=== PATIENT | female | born 1950 | race Caucasian/White ===

== ENCOUNTER 2017-03-14 21:35 | Observation (INO) | payer MEDICARE, OTHER ==
[~2017-03-14] VITALS: Ht 157.5 cm; Wt 72.3 kg
[2017-03-14 22:03] LABS: BASOPHILS ABSOLUTE AUTO 0.06 K/mm3 (0.00-0.23); BASOPHILS PERCENT AUTO 1 % (0-2); EOSINOPHILS PERCENT AUTO 0 % (0-6); Hematocrit 42.3 % (33.0-51.0); IMMATURE GRAN ABSOLUTE AUTO 0.03 K/mm3 (0.00-0.10); IMMATURE GRAN PERCENT AUTO 0 % (0-1); LYMPHOCYTES ABSOLUTE AUTO 2.96 K/mm3 (0.84-5.20); LYMPHOCYTES PERCENT AUTO 30 % (21-46); MONOCYTES ABSOLUTE AUTO 0.95 K/mm3 (0.16-1.47); MONOCYTES PERCENT AUTO 10 % (4-13); Mean Corpuscular HGB 28.5 pg (26.0-34.0); Mean Corpuscular HGB Conc 33.1 g/dL (31.5-36.5); Mean Corpuscular Volume 86 fL (80-100); Mean Platelet Volume 9.5 fL (9.1-12.4); NEUTROPHILS ABSOLUTE AUTO 5.85 K/mm3 (1.96-9.15); NEUTROPHILS PERCENT AUTO 59 % (41-73); Platelet Count 346 K/mm3 (150-400); RDW Coefficient Variation 12.9 % (11.7-14.2); RDW Standard Deviation 40.7 fL (35.1-46.3); Red Blood Cell Count 4.91 M/mm3 (3.80-5.20); White Blood Cell Count 9.85 K/mm3 (4.00-11.30)
[2017-03-14 22:08] LABS: Source, Urine Catheter
[2017-03-14 22:11] LABS: Bilirubin, Urine Neg (Neg); Blood, Urine 1+ (Neg); Color, Urine Yellow (P-Yellow); Glucose Qualitative, Urine Neg (Neg); Ketones, Urine Neg (Neg); Leukocyte Esterase, Urine Neg (Neg); Nitrite, Urine Neg (Neg); Protein, Urine Neg (Neg); Specific Gravity, Urine 1.025 (1.003-1.022); Urobilinogen, Urine NORM (Normal)
[2017-03-14 22:15] LABS: Prothrombin Time Results 10.4 Sec (9.7-11.5)
[2017-03-14 22:22] LABS: Alanine Aminotransfer (ALT/SGP 28 U/L (12-78); Albumin, Blood 3.9 g/dL (3.4-5.0); Albumin/Globulin Ratio 1.2 (0.8-1.8); Alk Phos 87 U/L (50-136); Anion Gap 6 mmol/L (6-16); Aspartate Aminotrans (AST/SGOT 22 U/L (12-37); Bilirubin, Total 0.3 mg/dL (0.1-1.0); Blood Urea Nitrogen 11 mg/dL (8-24); Bun/Creatinine Ratio 16.7 (12.0-20.0); CO2, Blood 27 mmol/L (21-32); Calcium, Blood 8.7 mg/dL (8.5-10.1); Chloride, Blood 109 mmol/L (98-108); Creatinine, Blood 0.66 mg/dL (0.40-1.00); Globulin, Blood 3.2 g/dL (2.2-4.0); Glomerular Filtration Rate >60 (60-); Glucose, Blood 109 mg/dL (70-99); Sodium, Blood 142 mmol/L (136-145); Total Protein, Blood 7.1 g/dL (6.4-8.2)
[2017-03-14 22:25] LABS: Appearance, Urine Clear (Clear)
[2017-03-14 22:29] LABS: Bacteria Not Seen /hpf; Red Blood Cells, Urine 0-2 /hpf (0-2); Squamous Epithelial Cells Rare /hpf (Few); U Amphetamine Screen Not Detected; U Barbituate Screen Not Detected; U Benzodiazapine Screen Not Detected; U Buprenorphine Screen Not Detected; U Cannabinoids Screen DETECTED; U Cocaine Screen Not Detected; U Methadone Screen Not Detected; U Methamphetamine Screen Not Detected; U Opiates Screen Not Detected; U Oxycodone Screen Not Detected; U Phencyclidine Screen Not Detected; U Propoxyphene Screen Not Detected; White Blood Cells, Urine 0-2 /hpf (0-5)
[2017-03-14] MEDS ORDERED: GABA300 PO (23:56)
[2017-03-14] MEDS ORDERED: SYNTHROID112 MCG PO (23:58)
[2017-03-14] MEDS ORDERED: TRAZ100 PO (23:59)
[2017-03-15] MEDS ORDERED: Ventolin5 MG/1 ML INH (00:04)
[2017-03-15] MEDS ORDERED: COMBIVENT RESPIM4 GM INH (00:04)
[2017-03-15] MEDS ORDERED: ALBU90OI61 INH (00:04)
[2017-03-15 02:01] LABS: Free Thyroxine 0.97 ng/dL (0.70-1.60)
[2017-03-15 06:12] LABS: CHOL/HDL RATIO 2.1; Cholesterol 135 mg/dL (50-200); HDL Cholesterol 65 mg/dL (>39); LDL/HDL RATIO 0.9; Low Density Lipoprotein Chol 56 mg/dL (0-110); Triglycerides 69 mg/dL (30-160); Very Low Density Lipoprot Chol 13 mg/dL (6-32)
[2017-03-15] MEDS ORDERED: GABA300T24 PO (12:03)
[2017-03-15] MEDS ORDERED: BUSP10 PO (12:05)
[2017-03-16] MEDS ORDERED: Aspirin EC81 MG PO (11:40)
== END 2017-03-16 14:05 | disposition home or self-care (01) ==
LOC: ER 21:35 → MEDS 21:36 → ENPENDDIS 03-16 13:00 → MEDS 03-16 14:05
PROVIDERS: Emergency Medicine; Family Medicine
DX: G45.9 Transient cerebral ischemic attack, unspecified (principal); E03.9 Hypothyroidism, unspecified; F32.9 Major depressive disorder, single episode, unspecified; F41.9 Anxiety disorder, unspecified; J44.9 Chronic obstructive pulmonary disease, unspecified; G62.9 Polyneuropathy, unspecified; F39 Unspecified mood [affective] disorder; Z98.890 Other specified postprocedural states; Z79.82 Long term (current) use of aspirin; Z79.899 Other long term (current) drug therapy; Z87.891 Personal history of nicotine dependence
CPT/HCPCS: 36415; 70450; 80053; 80061; 81001; 82947; 84439; 84443; 84481; 85025; 85610; 92610; 93005; 93010; 93306; 93880; 94640; 94760; 96374; 97162; 97166; 97530; 97535; 99285; G0378; G8978; G8979; G8987; G8988; G8989; G8996; G8997; G8998; J2060; J7030; P9612